=== PATIENT | female | born 1960 | race American Indian/Alaskan Native ===

== ENCOUNTER 2018-08-04 20:43 | Emergency (ER) | payer OTHER ==
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
[2018-08-05] MEDS ORDERED: BOOSTRIX IM ONE (01:02)
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
--- NOTE | 2018-08-05 02:34 | Cat Scan Report ---
PROCEDURE: CT HEAD/BRAIN WO CON TECHNIQUE: Routine axial imaging was obtained of the brain without contrast. HISTORY: head lac/injury COMPARISONS: None FINDINGS: There is no evidence of acute stroke or hemorrhage. The ventricular system is appropriate in size and symmetric. The calvarium appears intact. The visualized sinuses are clear. The mastoid air cells rev eals a small amount of fluid in the left mastoid cells. IMPRESSION: No acute intracranial process.. Chronic left mastoiditis. This document is electronically signed by Jhonathan Moore MD., August 05 2018 02:32:50 AM ET
[2018-08-05 03:14] VITALS: BP 125/72
== END 2018-08-05 03:16 | disposition home or self-care (01) ==
LOC: ED 20:43
DX: S01.81XA Laceration without foreign body of other part of head, initial encounter (principal); Y04.8XXA Assault by other bodily force, initial encounter; Y93.89 Activity, other specified; Y92.89 Other specified places as the place of occurrence of the external cause; Y99.8 Other external cause status
CPT/HCPCS: 70450; 90471; 90715